=== PATIENT | male | born 1965 | race Two or more races ===

== ENCOUNTER 2019-12-16 22:49 | Emergency (ER) | payer MEDICAID, OTHER ==
[~2019-12-16] VITALS: Ht 170.2 cm; Wt 76.7 kg
[2019-12-16 22:49] VITALS: BP 153/89
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
--- NOTE | 2019-12-16 23:01 | NUR ---
Patient does not wish to proceed with medical care recommended by Dr. Keys). Patient given information related to possible complications, up to and including , which could occur as a result of leaving the hospital at this time. Patient verbalizes understanding of risks involved due to leaving against medical advice. Patient has signed AMA form. Pt remains aaox4 no acute distress noted, resp even and unlabored.
== END 2019-12-16 23:11 | disposition home or self-care (01) ==
LOC: ER 22:51
DX: T40.601A Poisoning by unspecified narcotics, accidental (unintentional), initial encounter (principal); R09.2 Respiratory arrest; Y92.89 Other specified places as the place of occurrence of the external cause